=== PATIENT | female | born 1990 | race Two or more races ===

== ENCOUNTER 2021-06-14 20:55 | Emergency (ER) | payer MEDICAID ==
[~2021-06-14] VITALS: Ht 172.7 cm; Wt 92.1 kg
[2021-06-14] MEDS ORDERED: AMOX1TAB16 PO (21:26)
[2021-06-14] MEDS ORDERED: ASPI-1450 PO (21:26)
[2021-06-14 22:20] LABS: COVID AG,FIA SOURCE NASAL SWAB
[2021-06-14 23:00] VITALS: BP 103/75
[2021-06-14 23:08] LABS: INFLUENZA TYPE A NEGATIVE FOR TYPE A (NEGATIVE); INFLUENZA TYPE B NEGATIVE FOR TYPE B (NEGATIVE)
== END 2021-06-14 23:36 | disposition home or self-care (01) ==
LOC: EMS 21:01
DX: O99.513 Diseases of the respiratory system complicating pregnancy, third trimester (principal); O26.893 Other specified pregnancy related conditions, third trimester; J32.9 Chronic sinusitis, unspecified; Z20.822 Contact with and (suspected) exposure to COVID-19; Z3A.31 31 weeks gestation of pregnancy; Z79.82 Long term (current) use of aspirin
CPT/HCPCS: 87804; 99283